=== PATIENT | female | born 1985 | race Caucasian/White ===

== ENCOUNTER → 2018-02-09 | Outpatient (CLI) | payer OTHER ==
[~2018-02-09] MED LIST: DOXY100 PO; ESOM20 PO; Finacea50 GM TOP
[2018-02-09 16:25] LABS: Influenza A Negative (NEGATIVE); Influenza B Negative (NEGATIVE)
== END | disposition home or self-care (01) ==
LOC: LAB EV 15:13
PROVIDERS: Physician Assistant Medical
DX: J06.9 Acute upper respiratory infection, unspecified (principal)
CPT/HCPCS: 87804

== ENCOUNTER → 2018-12-24 | Outpatient (CLI) | payer OTHER | END | disposition home or self-care (01) | LOC: LAB 15:45 → LAB SHORT 15:45 | DX: Z32.01 Encounter for pregnancy test, result positive (principal) | CPT/HCPCS: 84702 ==

== ENCOUNTER 2019-08-22 14:40 | Emergency (ER) | payer OTHER ==
[~2019-08-22] VITALS: Ht 165.1 cm; Wt 91.6 kg
[2019-08-22] MEDS ORDERED: SERT25 PO (14:59)
== END 2019-08-22 15:44 | disposition home or self-care (01) ==
LOC: ER 14:40
DX: S93.402A Sprain of unspecified ligament of left ankle, initial encounter (principal); X50.9XXA Other and unspecified overexertion or strenuous movements or postures, initial encounter; Z79.899 Other long term (current) drug therapy; Z87.891 Personal history of nicotine dependence
CPT/HCPCS: 29515; 73610; 99283-25; L1906

== ENCOUNTER 2019-09-06 08:40 | Inpatient (IN) | payer OTHER ==
[~2019-09-06] VITALS: Ht 165.1 cm; Wt 92.0 kg
[~2019-09-06 08:40] MED LIST changes: +SERT25 PO
[2019-09-06] MEDS ORDERED: PRENATAL TABLE1 EAC2 PO (09:35)
[2019-09-06] MEDS ORDERED: FERSU300 PO (09:36)
[2019-09-06 09:40] LABS: BASOPHILS ABSOLUTE AUTO 0.05 K/mm3 (0.00-0.23); BASOPHILS PERCENT AUTO 1 % (0-2); EOSINOPHILS ABSOLUTE AUTO 0.12 K/mm3 (0.00-0.68); EOSINOPHILS PERCENT AUTO 1 % (0-6); Hematocrit 37.5 % (33.0-51.0); Hemoglobin 12.7 g/dL (11.5-16.0); IMMATURE GRAN ABSOLUTE AUTO 0.07 K/mm3 (0.00-0.10); IMMATURE GRAN PERCENT AUTO 1 % (0-1); LYMPHOCYTES ABSOLUTE AUTO 2.18 K/mm3 (0.84-5.20); LYMPHOCYTES PERCENT AUTO 24 % (21-46); MONOCYTES PERCENT AUTO 8 % (4-13); Mean Corpuscular HGB Conc 33.9 g/dL (31.5-36.5); Mean Corpuscular Volume 88 fL (80-100); Mean Platelet Volume 12.2 fL (9.1-12.4); NEUTROPHILS ABSOLUTE AUTO 6.05 K/mm3 (1.96-9.15); NEUTROPHILS PERCENT AUTO 66 % (41-73); Platelet Count 140 K/mm3 (150-400); RDW Coefficient Variation 12.8 % (11.7-14.2); RDW Standard Deviation 41.1 fL (35.1-46.3); Red Blood Cell Count 4.24 M/mm3 (3.80-5.20); White Blood Cell Count 9.17 K/mm3 (4.00-11.30)
[2019-09-07 06:00] LABS: BASOPHILS ABSOLUTE AUTO 0.06 K/mm3 (0.00-0.23); BASOPHILS PERCENT AUTO 0 % (0-2); EOSINOPHILS ABSOLUTE AUTO 0.01 K/mm3 (0.00-0.68); EOSINOPHILS PERCENT AUTO 0 % (0-6); Hematocrit 37.2 % (33.0-51.0); Hemoglobin 12.5 g/dL (11.5-16.0); IMMATURE GRAN ABSOLUTE AUTO 0.09 K/mm3 (0.00-0.10); IMMATURE GRAN PERCENT AUTO 1 % (0-1); LYMPHOCYTES ABSOLUTE AUTO 2.13 K/mm3 (0.84-5.20); LYMPHOCYTES PERCENT AUTO 12 % (21-46); MONOCYTES ABSOLUTE AUTO 1.03 K/mm3 (0.16-1.47); MONOCYTES PERCENT AUTO 6 % (4-13); Mean Corpuscular HGB 30.3 pg (26.0-34.0); Mean Corpuscular HGB Conc 33.6 g/dL (31.5-36.5); Mean Corpuscular Volume 90 fL (80-100); Mean Platelet Volume 12.7 fL (9.1-12.4); NEUTROPHILS ABSOLUTE AUTO 14.29 K/mm3 (1.96-9.15); NEUTROPHILS PERCENT AUTO 81 % (41-73); Platelet Count 152 K/mm3 (150-400); RDW Coefficient Variation 12.8 % (11.7-14.2); RDW Standard Deviation 41.7 fL (35.1-46.3); Red Blood Cell Count 4.12 M/mm3 (3.80-5.20); White Blood Cell Count 17.61 K/mm3 (4.00-11.30)
--- NOTE | 2019-09-07 13:30 | NUR ---
CONSULT. HE IS LESS THAN 24 HOURS OLD, EDEMATOUS HEAD FROM DELIVERY. COORDINATED HIS SUCK ON MY FINGER, TENDS TO BITE INITIALLY AND KEEP TONGUE TOWARDS REAR OF MOUTH. DOES INCREASE HIS SUCTION HE EXTENDS HIS TONGUE FURTHER FORWARD. INSTRUCT/DEMO POSITIONING TO HELP OBTAIN A DEEPER ASYMETRIC LATCH AND THEN FURTHER WIDEN THE LATCH IF NEEDED FOR COMFORT. MOM ABLE TO SELF EXPRESS SMALL DROPS OF COLOSTRUM. INSTRUCT IN CHANGES TO EXPECT DURING THE FIRST WEEK WITH BABY AND WITH FEEDINGS AND REFERRED TO [facility] AND [facility] FOR PHOTOS AND INFORMATION. QUESTIONS ANSWERED. BOTH PARENTS ATTENTIVE TO TEACHING.
--- NOTE | 2019-09-08 04:54 | NUR ---
09/08/19 0430 pt awake sittting in chair and Dad in rocking chair holding baby. pt states that baby had fed q1-1.5 hours and seems fussy unless he is being held and rocked. tolerating feeds well, having multiple voids and stools. head unchanged. baby seems pacifies in dads arms with pacifier at this time, mom given gel pads for nipple discomfort, declines pain meds at this time
--- NOTE | 2019-09-08 08:40 | NUR ---
pt tearful, crying a little. worried about the and gave the baby some formula this morning and was crying because that wasnt part of her plan. explained colstrum, when breastmilk comes in, explained ok to supplement only if she wants to but not needed, she was worried about 6% wt loss, explained wt loss is expected and it is not greater than 10%, pt verbalized understanding, showed booklet and new beginning booklet
[2019-09-08] MEDS ORDERED: IBUP800 PO (10:11)
[2019-09-08] MEDS ORDERED: NEWMANS OINTMENT (10:12)
--- NOTE | 2019-09-08 11:20 | NUR ---
dc home with fob and baby,denies any questions
--- NOTE | 2019-09-08 11:45 | NUR ---
pt scripts were in the chart, have script for motrin and newmans ointment for pt will put with kardex for pt to come back and get
== END 2019-09-08 11:33 | disposition home or self-care (01) | DRG 807 ==
LOC: OBS 08:40 → BC 08:40 → OBS 09:15 → BC 09:17
PROVIDERS: ADMIT Nurse Practitioner Obstetrics & Gynecology
PROC: 10D07Z6 Extraction of Products of Conception, Vacuum, Via Natural or Artificial Opening (ICD-10-PCS; principal; 2019-09-07)
PROC: 0KQM0ZZ Repair Perineum Muscle, Open Approach (ICD-10-PCS; 2019-09-07)
PROC: 3E0R3BZ Introduction of Anesthetic Agent into Spinal Canal, Percutaneous Approach (ICD-10-PCS; 2019-09-07)
PROC: 10907ZC Drainage of Amniotic Fluid, Therapeutic from Products of Conception, Via Natural or Artificial Opening (ICD-10-PCS; 2019-09-07)
DX: O99.824 Streptococcus B carrier state complicating childbirth (principal); Z37.0 Single live birth; O40.3XX0 Polyhydramnios, third trimester, not applicable or unspecified; Z3A.40 40 weeks gestation of pregnancy; O75.81 Maternal exhaustion complicating labor and delivery; O76 Abnormality in fetal heart rate and rhythm complicating labor and delivery; O70.1 Second degree perineal laceration during delivery; O62.1 Secondary uterine inertia
CPT/HCPCS: 36415; 51702; 85025; 86900; 86901; J0290; J1885; J2001; J2210; J2590; J3010; J7120

== ENCOUNTER 2023-05-08 11:31 | Day surgery (SDC) | payer OTHER ==
[2023-05-08] VITALS (12 sets, daily range): BP systolic 101–122; BP diastolic 50–79
[~2023-05-08] VITALS: Ht 165.1 cm; Wt 68.6 kg
[~2023-05-08 11:31] MED LIST changes: +FERSU300 PO; +IBUP800 PO; +NEWMANS OINTMENT; +PRENATAL TABLE1 EAC2 PO
[2023-05-08] MEDS ORDERED: MELO7.5 PO (11:52)
[2023-05-08] MEDS ORDERED: BACL10 PO (11:53)
--- NOTE | 2023-05-08 12:20 | NUR ---
Ambulatory in Day Surgery History, Chart, Medications and Allergies reviewed before start of procedure. Pre-Op teaching done. Pt verbalizes understanding. Patient States Post-Procedure ride home has been arranged with husbandtoshia Christiansen.
--- NOTE | 2023-05-08 16:40 | NUR ---
Patient up to Ambulate independently. Gait steady. Discharge instructions reviewed with patient. Patient verbalizes understanding. Copy given to patient to take home. Patient States Post-Procedure ride home has been arranged. Discharged via wheelchair to private car for ride home.
== END 2023-05-08 16:40 | disposition home or self-care (01) ==
LOC: ORSCMMR 11:31 → ORD 13:15 → ORSCMMR 13:15
PROVIDERS: Obstetrics & Gynecology
PROC: 0UT74ZZ Resection of Bilateral Fallopian Tubes, Percutaneous Endoscopic Approach (ICD-10-PCS; principal; 2023-05-08 13:15)
PROC: 0U5B8ZZ Destruction of Endometrium, Via Natural or Artificial Opening Endoscopic (ICD-10-PCS; principal; 2023-05-08 13:15)
DX: Z30.2 Encounter for sterilization (principal); N92.0 Excessive and frequent menstruation with regular cycle; N94.6 Dysmenorrhea, unspecified; N83.8 Other noninflammatory disorders of ovary, fallopian tube and broad ligament; J45.909 Unspecified asthma, uncomplicated; Z87.891 Personal history of nicotine dependence; E28.2 Polycystic ovarian syndrome; Z79.899 Other long term (current) drug therapy
CPT/HCPCS: 88302; 88305; A9270; J0690; J1100; J1885; J2250; J2405; J2704; J2710; J3010; J7120